=== PATIENT | female | born 1940 | race Caucasian/White ===

== ENCOUNTER → 2020-11-18 | Outpatient (CLI) | payer MEDICARE ==
[~2020-11-18] MED LIST: ALEVE 220MG220 MG PO; ASPIRIN E.C. 8181 MG PO; CALCIUM1 CAP PO; COLACE 100100 MG/CAP PO; LEVAQUIN 750MG750 M1 PO; MAGNESIUM200 MG PO; PERCOCET 325 MG1 TA2 PO; PHENERGAN 25 TA25 MG PO; PRILOSEC 20MG20 MG PO; PROAIR HFA0.09 MG/AC IH; PROBIOTIC FORMU1 CAP PO; SYNTHROID0.075 MG/T PO; VITAMIN D 50,1.25 MG PO
== END ==
LOC: COL.RAD 11:30
DX: Z01.812 Encounter for preprocedural laboratory examination (principal); R11.2 Nausea with vomiting, unspecified; R63.0 Anorexia; Z90.710 Acquired absence of both cervix and uterus
CPT/HCPCS: Q9967